=== PATIENT | male | born 2000 | race American Indian/Alaskan Native ===

== ENCOUNTER 2021-12-17 19:34 | Emergency (ER) | payer OTHER ==
[2021-12-17] MEDS ORDERED: Propranolol 20 MG Tab PO ONE (20:04)
== END 2021-12-17 21:16 | disposition home or self-care (01) ==
LOC: FB.ED 19:34
DX: R00.2 Palpitations (principal); R00.0 Tachycardia, unspecified; R06.02 Shortness of breath; R07.9 Chest pain, unspecified
CPT/HCPCS: 36415; 84484; 93005; 93010; 99282; 99285-25; A9270-GY